=== PATIENT | male | born 1970 | race Caucasian/White ===

== ENCOUNTER 2021-06-09 00:26 | Emergency (ER) | payer OTHER ==
[2021-06-09 00:43] VITALS: BP 129/83; PULSE 108
--- NOTE | 2021-06-09 00:57 | EDM.PDOC ---
ED HPI GENERAL MEDICAL PROBLEM - General Chief Complaint: Respiratory Problem Stated Complaint: COUGH, SOB, COVID POSITIVE Time Seen by Provider: 06/09/21 00:50 Source of Information: Reports: Patient History Limitations: Reports: No Limitations - History of Present Illness INITIAL COMMENTS - FREE TEXT/NARRATIVE: Ariel is a 50-year-old male presenting to the ED for worsening shortness of breath and cough over the course of the last 10 days. Patient started having symptoms on 05/31/2021. He was seen by his primary care provider, Dr. Merrill Barlow who diagnosed him with COVID-19 and placed him on a 3-day course of azithromycin as well as steroids. The patient believes he also got ivermectin. He has been taking guaifenesin with codeine for his cough. He does have a history significant for morbid obesity with a BMI of 47.3 and asthma. He denies a history of diabetes or heart disease, hypertension or hyperlipidemia. Patient is scheduled to undergo monoclonal therapy at [facility] on 06/11/2021 which would be outside of the 10-day window for therapy. The patient is not immunized for COVID-19 because he states "nobody convinced me I needed it". - Related Data Allergies Allergy/AdvReac Type Severity Reaction Status Date / Time varenicline [From Chantix] Allergy Hallucinati Verified 06/09/21 00:40 ons Home Meds: Home Meds Acetaminophen [Tylenol Extra Strength] 500 mg PO TID 09/12/16 [History] Albuterol Sulfate [Proair Hfa] 8.5 gm IH QID 09/12/16 [History] Triamcinolone Acetonide [Kenalog 0.1% Crm] 1 gm TOP ASDIRECTED PRN 09/12/16 [History] methocarbamoL [Robaxin-750] 750 mg PO QID 09/12/16 [History] Past Medical History HEENT History: Reports: Impaired Vision Respiratory History: Reports: Asthma Oncologic (Cancer) History: Reports: Other (See Below) Other Oncologic History: testicular cancer - Infectious Disease History Infectious Disease History: Reports: Chicken Pox - Past Surgical History HEENT Surgical History: Reports: Tonsillectomy Male Surgical History: Reports: Other (See Below) Other Male Surgeries/Procedures: testical removal for cancer Social & Family History - Tobacco Use Tobacco Use Status *Q: Current Status Unknown - Caffeine Use Caffeine Use: Reports: Soda - Living Situation & Occupation Living situation: Reports: Occupation: Employed ED ROS GENERAL - Review of Systems Review Of Systems: See Below Constitutional: Reports: Weakness HEENT: Reports: Rhinitis, Sinus Problem, Throat Pain Respiratory: Reports: Shortness of Breath, Cough Cardiovascular: Reports: Syncope (Secondary to coughing) Endocrine: Reports: Fatigue GI/Abdominal: Reports: No Symptoms : Reports: No Symptoms Musculoskeletal: Reports: Muscle Pain Skin: Reports: No Symptoms Neurological: Reports: Headache Psychiatric: Reports: No Symptoms Hematologic/Lymphatic: Reports: No Symptoms Immunologic: Reports: No Symptoms ED EXAM, GENERAL - Physical Exam Exam: See Below Exam Limited By: No Limitations General Appearance: Alert, No Apparent Distress, Obese Eye Exam: Bilateral Eye: EOMI, PERRL Nose: Nasal Drainage Throat/Mouth: Normal Oropharynx, Normal Voice, No Airway Compromise Head: Atraumatic, Normocephalic Neck: Normal Inspection, Supple. No: Lymphadenopathy (R), Lymphadenopathy (L) Respiratory/Chest: No Respiratory Distress, Lungs Clear, Normal Breath Sounds, No Accessory Muscle Use. No: Rales, Rhonchi, Wheezing Cardiovascular: Normal Peripheral Pulses, Regular Rate, Rhythm, No Murmur Peripheral Pulses: 2+: Radial (L), Radial (R) GI/Abdominal: Normal Bowel Sounds, Soft, Non-Tender Extremities: Normal Inspection, No Pedal Edema Neurological: Alert, Oriented, Normal Cognition, No Motor/Sensory Deficits Psychiatric: Normal Affect, Normal Mood Skin Exam: Warm, Dry, Intact, Normal Color Course - Vital Signs Last Recorded V/S: Last Vital Signs Temp 37.7 C 06/09/21 00:39 Pulse 108 H 06/09/21 00:39 Resp 18 06/09/21 00:39 BP 129/83 06/09/21 00:39 Pulse Ox 92 L 06/09/21 00:39 - Orders/Labs/Meds Orders: Active Orders 24 hr Category Date Time Status Chest 1V Frontal [CR] Stat Exams 06/09/21 00:51 Taken C-REACTIVE PROTEIN [CHEM] Stat Lab 06/09/21 01:20 Received COMPREHENSIVE METABOLIC PN,CMP [CHEM] Stat Lab 06/09/21 01:20 Received FERRITIN [CHEM] Stat Lab 06/09/21 01:20 Received LACTATE DEHYDROGENASE,LDH [CHEM] Stat Lab 06/09/21 01:20 Received Labs: Laboratory Tests 06/09/21 06/09/21 06/09/21 Range/Units 01:20 01:20 01:20 WBC 3.2 L (4.5-11.0) K/uL RBC 4.91 (4.30-5.90) M/uL Hgb 13.9 (12.0-15.0) g/dL Hct 41.6 (40.0-54.0) % MCV 85 (80-98) fL MCH 28 (27-31) pg MCHC 33 (32-36) % Plt Count 92 L (150-400) K/uL Neut % (Auto) 68.5 H (36-66) % Lymph % (Auto) 22.4 L (24-44) % [place] % (Auto) 8.5 H (2-6) % Eos % (Auto) 0.3 L (2-4) % Baso % (Auto) 0.3 (0-1) % D-Dimer, Quantitative 751.85 H (0.0-500.0) ng/mL Lactic Acid 1.6 (0.4-2.0) mmol/L - Radiology Interpretation Free Text/Narrative:: The patient's portable chest x-ray which was a poor inspiration. There is magnification of the patient's cardiac silhouette due to his significant anterior posterior diameter. There is scattered pulmonary infiltrates consistent with Covid lung but I did not see any evidence for consolidation worrisome for a secondary pneumonia. - Re-Assessments/Exams Free Text/Narrative Re-Assessment/Exam: 06/09/21 02:22 I reviewed the patient's labs including a CBC showing a leukocyte count of 3.2, hemoglobin of 13.9, hematocrit of 41.6 and a platelet count of 92,000. The patient's venous lactic acid is 1.6 and his D-dimer is elevated at 751. Patient is Covid positive. His comprehensive metabolic profile is a sodium of 137, potassium 3.8, chloride 99, bicarbonate of 29, BUN of 10 with a creatinine of 0.9, calcium of 7.9 with an albumin of 3.3 given a corrected calcium of 8.1, glucose of 122, ALT of 74 with an AST of 39 and an alkaline phosphatase of 51. His C-reactive protein is mildly elevated at 2.58 and his LD H is elevated at 295. The patient's oxygenation is 95% on room air, he does not need to be hospitalized so we will discharge him. He is already scheduled to have monoclonal therapy on Thursday at [facility]. I will refill his prescription for Robitussin with codeine for his cough control. Patient is instructed on conditions to return to the ED. He should socially isolate to not spread the Covid. Departure - Departure Time of Disposition: 02:29 Disposition: Home, Self-Care 01 Clinical Impression: COVID-19 - Discharge Information Instructions: COVID-19: What to Do If You Are Sick- [facility] (11/14/2020), COVID-19: How to Protect Yourself and Others - [facility] Referrals: PCP,None [Primary Care Provider] - Forms: ED Department Discharge Care Plan Goals: Your work-up today shows that you have moderate COVID-19. Your oxygenation is well enough that you do not need to be hospitalized or placed on oxygen. You are already scheduled for monoclonal therapy at [facility] on Thursday. I am refilling your prescription for guaifenesin with codeine to help control your cough. Continue to use your inhaler as necessary. Sepsis Event Note (ED) - Focused Exam Vital Signs: Vital Signs Temp Pulse Resp BP Pulse Ox 06/09/21 00:39 37.7 C 108 H 18 129/83 92 L - Problem List & Annotations (1) COVID-19 SNOMED Code(s): 561694733 Code(s): U07.1 - COVID-19 Status: Acute Priority: High Current Visit: Yes - Problem List Review Problem List Initiated/Reviewed/Updated: Yes - My Orders Last 24 Hours: My Active Orders 06/09/21 00:51 Chest 1V Frontal [CR] Stat 06/09/21 01:20 C-REACTIVE PROTEIN [CHEM] Stat COMPREHENSIVE METABOLIC PN,CMP [CHEM] Stat FERRITIN [CHEM] Stat LACTATE DEHYDROGENASE,LDH [CHEM] Stat - Assessment/Plan Last 24 Hours: My Active Orders 06/09/21 00:51 Chest 1V Frontal [CR] Stat 06/09/21 01:20 C-REACTIVE PROTEIN [CHEM] Stat COMPREHENSIVE METABOLIC PN,CMP [CHEM] Stat FERRITIN [CHEM] Stat LACTATE DEHYDROGENASE,LDH [CHEM] Stat
--- NOTE | 2021-06-10 10:13 | CR ---
CHEST: Portable 06/09/2021 CLINICAL HISTORY:Covid COMPARISON:2009 FINDINGS: Study is limited due to very lordotic positioning with poor inspiratory level. This exaggerates the heart size. There is patchy density in the left lower lung field. Impression: Limited portable study Patchy left lower lobe density may represent some pneumonia Upright two-view chest recommended when patient's condition allows
== END 2021-06-09 02:37 | disposition home or self-care (01) ==
LOC: JP.ED 00:26
DX: U07.1 COVID-19 (principal); J45.909 Unspecified asthma, uncomplicated; E66.01 Morbid (severe) obesity due to excess calories; Z68.42 Body mass index [BMI] 45.0-49.9, adult; Z88.8 Allergy status to other drugs, medicaments and biological substances; Z79.899 Other long term (current) drug therapy
CPT/HCPCS: 36415; 71045; 71045-26; 80053; 82728; 83605; 83615; 85025; 85379; 86140; 99285-25

== ENCOUNTER 2025-07-20 06:29 | Day surgery (SDC) | payer BC ==
[2025-07-20 06:50] LABS: PLATELET COUNT,PLT 191.0 K/uL (130-375); RED BLOOD CELL COUNT 5.28 M/uL (4.14-5.76); WHITE BLOOD CELL COUNT,WBC 7.4 K/uL (3.2-11.0)
[2025-07-20] MEDS ORDERED: Propofol 200 MG/20 ML SDV ONE (07:03)
[2025-07-20] MEDS ORDERED: Ondansetron 4 MG/2 ML SDV ONE (07:03)
[2025-07-20] MEDS ORDERED: Dexamethasone 4 MG/ML SDV ONE (07:03)
[2025-07-20] MEDS ORDERED: Glycopyrrolate 0.2 MG/ML 5 ML MDV ONE (07:03)
[2025-07-20] MEDS ORDERED: Succinylcholine 200 MG/10 ML MDV ONE (07:03)
[2025-07-20] MEDS ORDERED: fentaNYL 250 MCG/5 ML SDV ONE (07:04)
[2025-07-20 07:11] LABS: A/G RATIO 0.9 (1.2-2.2); ALANINE AMINOTRANSFERASE,ALT 73 U/L (12-78); ASPARTATE AMNIOTRANSFERASE,AST 34 U/L (15-37); BILIRUBIN TOTAL 0.4 mg/dL (0.2-1.0); BLOOD UREA NITROGEN,BUN 11 mg/dL (7-18); CARBON DIOXIDE,CO2 28 mmol/L (21-32); CHLORIDE,CL 102 mmol/L (100-108); CREATININE 0.9 mg/dL (0.8-1.3); EST CRCL DRUG DOSING (CG) 93.83 mL/min; ESTIMATED GFR 101 mL/min (>60); GLUCOSE RANDOM 180 mg/dL (74-106); POTASSIUM,K 4.0 mmol/L (3.6-5.2); PROTEIN TOTAL,TP 7.5 g/dL (6.4-8.2); SODIUM,NA 139 mmol/L (140-148)
[2025-07-20] MEDS: metroNIDAZOLE/Normal Saline 500 MG in Premix Bag 1 BAG IV ONE (07:46)
[2025-07-20] MEDS ORDERED: Ketorolac 30 MG/ML SDV ONE (08:30)
[2025-07-20] MEDS: Acetaminophen/HYDROcodone 325-5 MG Tab PO ONE ×2 (10:43→11:38)
[2025-07-20 12:00] VITALS: BP 107/66; PULSE 89
== END 2025-07-20 12:02 | disposition home or self-care (01) ==
LOC: JP.SDS 06:29
PROVIDERS: ATTEND Surgery
DX: K43.9 Ventral hernia without obstruction or gangrene (principal); E11.9 Type 2 diabetes mellitus without complications; E66.9 Obesity, unspecified; Z88.8 Allergy status to other drugs, medicaments and biological substances; Z68.30 Body mass index [BMI] 30.0-30.9, adult; Z79.84 Long term (current) use of oral hypoglycemic drugs; Z79.899 Other long term (current) drug therapy
CPT/HCPCS: 36415; 80053; 85027; A9270-GY; C1781; J0169; J0330; J0665; J0690; J1100; J1596; J1836; J1885; J2405; J2704; J2710; J2795; J3010; J3490; J7030